=== PATIENT | female | born 1985 | race Caucasian/White ===

== ENCOUNTER 2017-10-10 22:09 | Emergency (ER) | payer OTHER ==
[~2017-10-10] VITALS: Ht 170.2 cm; Wt 52.2 kg
[~2017-10-10 22:09] MED LIST: SEPTRA DS TABLE1 TAB PO; TERCONAZOLE20 GM VG
[2017-10-10] MEDS ORDERED: ALEVE220 MG (22:27)
== END 2017-10-11 08:01 | disposition home or self-care (01) ==
LOC: ER 22:09
DX: D25.9 Leiomyoma of uterus, unspecified (principal); R10.2 Pelvic and perineal pain

== ENCOUNTER 2019-01-23 10:29 | Day surgery (SDC) | payer OTHER ==
[~2019-01-23 10:29] MED LIST changes: +ALEVE220 MG
== END 2019-01-23 15:59 | disposition home or self-care (01) ==
LOC: CIR.AMB 10:29 → EDBD 10:29 → CIR.AMB 15:59
DX: N72 Inflammatory disease of cervix uteri (principal)

== ENCOUNTER 2022-06-04 15:26 | Emergency (ER) | payer OTHER ==
[~2022-06-04] VITALS: Ht 170.2 cm; Wt 53.5 kg
[2022-06-04] MEDS ORDERED: ZOLOFT25 MG (16:44)
[2022-06-04] MEDS ORDERED: MIRALAX510 GM PO (21:08)
== END 2022-06-04 21:20 | disposition home or self-care (01) ==
LOC: ER 15:26
DX: K59.00 Constipation, unspecified (principal)